=== PATIENT | male | born 1930 | race Caucasian/White ===

== ENCOUNTER 2019-09-02 11:35 | Emergency (ER) | payer MEDICARE, BC ==
[2019-09-02 11:55] VITALS: BP 108/92; PULSE 78
[2019-09-02] MEDS ORDERED: Sodium Chloride 0.9% 10 ML Syringe FLUSH PRN (12:20)
[2019-09-02] MEDS ORDERED: Furosemide 20 MG Tab PO ONE (17:30)
--- NOTE | 2019-09-02 18:13 | EDM.PDOC ---
ED HPI GENERAL MEDICAL PROBLEM - General Chief Complaint: General Stated Complaint: [facility] Time Seen by Provider: 09/02/19 12:08 Source of Information: Reports: Patient, [facility] Records, RN Notes Reviewed - History of Present Illness INITIAL COMMENTS - FREE TEXT/NARRATIVE: 89-year-old male has been sent here from the [facility] for evaluation of increasing confusion, generalized weakness, shortness of breath. This apparently has been worsening over the past several days. There is no report of running fever. There is no report of recent fall or injury patient does report or headaches than usual recently. On arrival to ED he denies chest pain or feeling short of breath. He denies abdominal pain nausea vomiting. He really has no complaints other than having "vivid dreams that are apparently quite bothersome". He also states he has been voiding frequently but no pain or burning. He does have history of diabetes, hypertension, congestive heart failure, chronic arthritis. - Related Data Allergies Allergy/AdvReac Type Severity Reaction Status Date / Time cephalexin [Cephalexin] Allergy Hives Verified 09/02/19 11:56 ciprofloxacin Allergy Cannot Verified 09/02/19 11:56 Remember Penicillins Allergy Hives Verified 09/02/19 11:56 pneumococcal vaccine Allergy Cannot Verified 09/02/19 11:56 Remember monohydrate Allergy Cannot Uncoded 09/02/19 11:56 Remember Home Meds: Home Meds Rivaroxaban [Xarelto] 15 mg PO DAILY 10/22/14 [History] Tamsulosin [Flomax] 0.8 mg PO DAILY 10/22/14 [History] Acetaminophen [Tylenol] 650 mg PO BID 02/21/16 [History] Ascorbic Acid [Vitamin C] 1,000 mg PO DAILY 02/21/16 [History] Colestipol HCl 1 gm PO BID 02/21/16 [History] Dutasteride [Avodart] 0.5 mg PO DAILY 02/21/16 [History] Escitalopram Oxalate [Lexapro] 20 mg PO DAILY 02/21/16 [History] Furosemide [Lasix] 20 mg PO MOWEFR 02/21/16 [History] Lactobacillus Acidophilus [Acidophilus Lactobacillus] 1 each PO DAILY 02/21/16 [ History] Ranitidine [Zantac] 150 mg PO DAILY 02/21/16 [History] Losartan [Cozaar] 25 mg PO DAILY #30 tablet 02/28/16 [Rx] Pantoprazole [ProTONIX IV] 40 mg PO Q12H #60 vial 02/28/16 [Rx] Carboxymethylcellulose Sodium [Artificial Tears] 1 drop EYEBOTH TID 09/02/19 [ History] Loratadine 10 mg PO DAILY 09/02/19 [History] Metoprolol Succinate [Toprol XL] 12.5 mg PO DAILY 09/02/19 [History] Phenol [Chloraseptic Throat [place]] 2 spray PO Q4H PRN 09/02/19 [History] SitaGLIPtin [Januvia] 100 mg PO DAILY 09/02/19 [History] Sodium Chloride [Saline Nasal [place]] 2 spray INH Q2H PRN 09/02/19 [History] traMADol [Ultram] 50 mg PO BEDTIME 09/02/19 [History] Past Medical History HEENT History: Reports: Cataract, Hard of Hearing, Impaired Vision, Other (See Below) Other HEENT History: wears glasses Cardiovascular History: Reports: Afib, CAD, Heart Failure, High Cholesterol, Pacemaker Respiratory History: Reports: Bronchitis, Recurrent, PE, SOB Gastrointestinal History: Reports: Gastritis, GERD Genitourinary History: Reports: BPH, Prostate Disorder, Other (See Below) Other Genitourinary History: nocturia Musculoskeletal History: Reports: Osteoarthritis, Other (See Below) Other Musculoskeletal History: lumbar vertebra fx Neurological History: Reports: TIA, Other (See Below) Other Neuro History: gilbert syndrome Psychiatric History: Reports: Depression Endocrine/Metabolic History: Reports: Diabetes, Type II, Obesity/BMI 30+ Oncologic (Cancer) History: Reports: Squamous Cell Carcinoma Dermatologic History: Reports: Seborrheic Dermatitis - Infectious Disease History Infectious Disease History: Reports: C-Difficile, MRSA - Past Surgical History HEENT Surgical History: Reports: Cataract Surgery GI Surgical History: Reports: Cholecystectomy Social & Family History - Family History Family Medical History: Noncontributory - Tobacco Use Smoking Status *Q: Never Smoker - Caffeine Use Caffeine Use: Reports: None - Recreational Drug Use Recreational Drug Use: No - Living Situation & Occupation Living situation: Reports: Extended Care Facility ED ROS GENERAL - Review of Systems Review Of Systems: See Below Constitutional: Denies: Fever, Chills HEENT: Denies: Sinus Problem, Throat Pain, Vertigo, Vision Change Respiratory: Reports: Shortness of Breath, Cough (occasional) Cardiovascular: Denies: Chest Pain GI/Abdominal: Denies: Abdominal Pain, Nausea, Vomiting Musculoskeletal: Reports: No Symptoms (nothing new reported or that patient is aware of) Skin: Reports: No Symptoms Neurological: Reports: Headache, Weakness (mild genernalized). Denies: Numbness , Tingling, Trouble Speaking ED EXAM, GENERAL - Physical Exam Exam: See Below General Appearance: Alert, No Apparent Distress Eye Exam: Bilateral Eye: PERRL Ears: Normal External Exam Nose: Normal Inspection Throat/Mouth: Normal Inspection, Normal Oropharynx Head: Atraumatic. No: Facial Swelling Neck: Supple Respiratory/Chest: No Respiratory Distress, Normal Breath Sounds, Rales (mild rales L base). No: Rhonchi Cardiovascular: Regular Rate, Rhythm GI/Abdominal: Soft, Non-Tender Back Exam: No: CVA Tenderness (L), CVA Tenderness (R) Extremities: Normal Inspection, Pedal Edema (trace bilat). No: Leg Pain, Redness Neurological: Alert, No Motor/Sensory Deficits, Other (mildly confused, very talkative, telling nursing staff and myself all about "his oil [place], family") Skin Exam: Warm, Dry, Normal Color Course - Vital Signs Last Recorded V/S: Last Vital Signs Temp 96.9 F 09/02/19 11:50 Pulse 78 09/02/19 11:50 Resp 20 09/02/19 11:50 BP 108/92 H 09/02/19 11:50 Pulse Ox 92 L 09/02/19 11:50 - Orders/Labs/Meds Labs: Laboratory Tests 09/02/19 09/02/19 09/02/19 Range/Units 12:59 12:59 12:59 WBC 9.18 H (4.23-9.07) K/mm3 RBC 4.23 L (4.63-6.08) M/mm3 Hgb 13.6 L (13.7-17.5) gm/dl Hct 39.9 L (40.1-51.0) % MCV 94.3 H D (79.0-92.2) fl MCH 32.2 (25.7-32.2) pg MCHC 34.1 (32.2-35.5) g/dl RDW Std Deviation 47.1 H (35.1-43.9) fL Plt Count 173 (163-337) K/mm3 MPV 10.6 (9.4-12.3) fl Neut % (Auto) 53.3 (34.0-67.9) % Lymph % (Auto) 37.5 (21.8-53.1) % [place] % (Auto) 8.2 (5.3-12.2) % Eos % (Auto) 0.8 (0.8-7.0) Baso % (Auto) 0.2 (0.1-1.2) % Neut # (Auto) 4.90 (1.78-5.38) K/mm3 Lymph # (Auto) 3.44 (1.32-3.57) K/mm3 [place] # (Auto) 0.75 (0.30-0.82) K/mm3 Eos # (Auto) 0.07 (0.04-0.54) K/mm3 Baso # (Auto) 0.02 (0.01-0.08) K/mm3 Sodium 132 L (136-145) mEq/L Potassium 4.8 (3.5-5.1) mEq/L Chloride 97 L (98-107) mEq/L Carbon Dioxide 30 (21-32) mEq/L Anion Gap 9.8 (5-15) BUN 13 (7-18) mg/dL Creatinine 1.0 (0.7-1.3) mg/dL Est Cr Clr Drug Dosing 53.34 mL/min Estimated GFR (MDRD) > 60 (>60) mL/min BUN/Creatinine Ratio 13.0 L (14-18) Glucose 172 H (83-115) mg/dL Calcium 9.7 (8.5-10.1) mg/dL Total Bilirubin 1.2 H (0.2-1.0) mg/dL AST 24 (15-37) U/L ALT 25 (16-63) U/L Alkaline Phosphatase 50 (46-116) U/L Troponin I < 0.017 (0.00-0.056) ng/mL NT-Pro-B Natriuret Pep 896 H (0-450) pg/mL Total Protein 7.7 (6.4-8.2) g/dl Albumin 3.5 (3.4-5.0) g/dl Globulin 4.2 gm/dL Albumin/Globulin Ratio 0.8 L (1-2) Urine Color (Yellow) Urine Appearance (Clear) Urine pH (5.0-8.0) Ur Specific [place] (1.005-1.030) Urine Protein (Negative) Urine Glucose (UA) (Negative) Urine Ketones (Negative) Urine Occult Blood (Negative) Urine Nitrite (Negative) Urine Bilirubin (Negative) Urine Urobilinogen (0.2-1.0) Ur Leukocyte Esterase (Negative) Urine RBC (0-5) /hpf Urine WBC (0-5) /hpf Ur Squamous Epith Cells (0-5) /hpf Urine Bacteria (FEW) /hpf Urine Mucus (FEW) /hpf 09/02/19 Range/Units 16:09 WBC (4.23-9.07) K/mm3 RBC (4.63-6.08) M/mm3 Hgb (13.7-17.5) gm/dl Hct (40.1-51.0) % MCV (79.0-92.2) fl MCH (25.7-32.2) pg MCHC (32.2-35.5) g/dl RDW Std Deviation (35.1-43.9) fL Plt Count (163-337) K/mm3 MPV (9.4-12.3) fl Neut % (Auto) (34.0-67.9) % Lymph % (Auto) (21.8-53.1) % [place] % (Auto) (5.3-12.2) % Eos % (Auto) (0.8-7.0) Baso % (Auto) (0.1-1.2) % Neut # (Auto) (1.78-5.38) K/mm3 Lymph # (Auto) (1.32-3.57) K/mm3 [place] # (Auto) (0.30-0.82) K/mm3 Eos # (Auto) (0.04-0.54) K/mm3 Baso # (Auto) (0.01-0.08) K/mm3 Sodium (136-145) mEq/L Potassium (3.5-5.1) mEq/L Chloride (98-107) mEq/L Carbon Dioxide (21-32) mEq/L Anion Gap (5-15) BUN (7-18) mg/dL Creatinine (0.7-1.3) mg/dL Est Cr Clr Drug Dosing mL/min Estimated GFR (MDRD) (>60) mL/min BUN/Creatinine Ratio (14-18) Glucose (83-115) mg/dL Calcium (8.5-10.1) mg/dL Total Bilirubin (0.2-1.0) mg/dL AST (15-37) U/L ALT (16-63) U/L Alkaline Phosphatase (46-116) U/L Troponin I (0.00-0.056) ng/mL NT-Pro-B Natriuret Pep (0-450) pg/mL Total Protein (6.4-8.2) g/dl Albumin (3.4-5.0) g/dl Globulin gm/dL Albumin/Globulin Ratio (1-2) Urine Color Yellow (Yellow) Urine Appearance Clear (Clear) Urine pH 7.0 (5.0-8.0) Ur Specific [place] 1.020 (1.005-1.030) Urine Protein Negative (Negative) Urine Glucose (UA) Negative (Negative) Urine Ketones Negative (Negative) Urine Occult Blood Negative (Negative) Urine Nitrite Negative (Negative) Urine Bilirubin Negative (Negative) Urine Urobilinogen 0.2 (0.2-1.0) Ur Leukocyte Esterase Negative (Negative) Urine RBC 0-5 (0-5) /hpf Urine WBC 0-5 (0-5) /hpf Ur Squamous Epith Cells 0-5 (0-5) /hpf Urine Bacteria Few (FEW) /hpf Urine Mucus Few (FEW) /hpf Meds: Medications Discontinued Medications Generic Name Dose Route Start Last Admin Trade Name Antoine PRN Reason Stop Dose Admin Furosemide 20 mg 09/02/19 17:30 09/02/19 17:54 Lasix PO 09/02/19 17:31 20 mg ONETIME ONE Administration Sodium Chloride 10 ml 09/02/19 12:20 09/02/19 12:37 Saline Flush FLUSH 10 ml ASDIRECTED PRN Administration Keep Vein Open - Re-Assessments/Exams Free Text/Narrative Re-Assessment/Exam: 09/05/19 13:47 CXR shows what might be slight pulmonary rosendo. WBC, trop., chemistries nl, BNP mildly elevated. Sats have been good here in the ED. It looks safe for him to go back to the [facility]. Discharge instr. as documented. Departure - Departure Time of Disposition: 18:09 Disposition: DC/Tfer to [facility] Condition: Fair Clinical Impression: Congestive heart failure, Confusion, Headache - Discharge Information Instructions: Confusion, Tension Headache, Adult, [id number], Heart Failure, [id number] Referrals: Domingo Bolivar MD [Primary Care Provider] - Forms: ED Department Discharge Additional Instructions: Head CT today did not show any acute findings. Chest x-ray shows very mild pulmonary congestion suggestive for very mild CHF. I recommend increasing furosemide to 20 mg daily for 7 days and than go back to current every other day schedule. Labs and UA today were relatively normal. There is no evidence for infection. Patient should follow-up clinic in about 7-10 days for recheck. Return to ED as needed if symptoms worsening in any way.
--- NOTE | 2019-09-03 09:15 | CT ---
Head CT Technique: Multiple axial sections through the brain were obtained. Intravenous contrast was not utilized. Comparison: Prior head CT study of 09/07/14. Findings: Ventricles along with basal cisterns and sulci over the convexities are mildly prominent. Diminished density is noted within the periventricular and subcortical white matter which is felt compatible with mild small vessel ischemic demyelination change. No other abnormal parenchymal densities are seen. No evidence of intracranial hemorrhage. No midline shift or mass effect is seen. Bone window settings were reviewed which show no acute calvarial abnormality. Visualized paranasal sinuses show minimal areas of mucosal thickening within the ethmoid sinuses which is believed to be incidental. Mastoid sinuses show nothing acute. Impression: 1. Senescent change and minimal sinus findings. 2. No acute intracranial abnormality is seen. Diagnostic code #2 This report was dictated in [place] Standard Time I agree with preliminary report from (Aimee, finalized on 09/02/19, 4:40 PM Central Time)
--- NOTE | 2019-09-03 09:41 | CR ---
Chest: Portable view of the chest was obtained. Comparison: Prior chest x-ray of 02/22/16. Heart size is accentuated portable technique. Tortuous thoracic aorta is seen. Stable elevated right hemidiaphragm is noted. Pacemaker is present. Lungs show no acute parenchymal change. Prior vertebroplasty is seen within the upper lumbar spine. Impression: 1. Findings as noted above. 2. Nothing acute is appreciated. Diagnostic code #2 This report was dictated in [place] Standard Time
== END 2019-09-02 18:55 ==
LOC: JD.ED 11:35
DX: R41.0 Disorientation, unspecified (principal); R51 Headache; I50.9 Heart failure, unspecified; I25.10 Atherosclerotic heart disease of native coronary artery without angina pectoris; E78.00 Pure hypercholesterolemia, unspecified; E66.9 Obesity, unspecified; Z68.31 Body mass index [BMI] 31.0-31.9, adult; F32.9 Major depressive disorder, single episode, unspecified; Z86.73 Personal history of transient ischemic attack (TIA), and cerebral infarction without residual deficits; Z88.0 Allergy status to penicillin; Z88.1 Allergy status to other antibiotic agents; Z88.8 Allergy status to other drugs, medicaments and biological substances
CPT/HCPCS: 36415; 70450; 71045; 80053; 81001; 83880; 84484; 85025; 99285; A9270; 99283